=== PATIENT | male | born 1965 | race Caucasian/White ===

== ENCOUNTER 2019-09-28 11:19 | Emergency (ER) | payer SELFPAY ==
[~2019-09-28] VITALS: Ht 170.2 cm; Wt 77.1 kg
[~2019-09-28 11:19] MED LIST: BISA-79 PO
--- NOTE | 2019-09-28 11:30 | NUR ---
BIB [facility] 82. PATIENT IS AWAKE AND ALERT. [employer] HERE AT BEDSIDE SPEAKING TO PATIENT
[2019-09-28] MEDS ORDERED: IBUPROFEN 800 MG TABLET ONE (11:44)
[2019-09-28] MEDS ORDERED: IBUPROFEN 800 MG TABLET PO ONE (11:45)
--- NOTE | 2019-09-28 12:16 | NUR ---
DC AND FOLLOW UP INSTRUCTIONS GIVEN AND EXPLAINED TO PATIENT WHO STATES HE UNDERSTANDS ALL INSTRUCTIONS
== END 2019-09-28 12:17 | disposition home or self-care (01) ==
LOC: ER 11:19
DX: M25.512 Pain in left shoulder (principal); M79.605 Pain in left leg; Z79.899 Other long term (current) drug therapy; V03.99XA Pedestrian with other conveyance injured in collision with car, pick-up truck or van, unspecified whether traffic or nontraffic accident, initial encounter; Y93.89 Activity, other specified; Y92.89 Other specified places as the place of occurrence of the external cause; Y99.8 Other external cause status
CPT/HCPCS: A4663